=== PATIENT | female | born 1995 | race Caucasian/White ===

== ENCOUNTER 2019-10-08 21:42 | Emergency (ER) | payer OTHER ==
[~2019-10-08] VITALS: Ht 177.8 cm; Wt 84.6 kg
--- NOTE | 2019-10-08 21:48 | PHYS DOC ---
General Adult EDM: Chief Complaint: ABDOMINAL PAIN HPI: HPI: ".. I think I having pain from an Ovarian cyst.. it is down here on the Rt... I ve had cyst before.. " Patient is a 23 year old FEMALE who presents with above hx and complaints of abdomen pain. Pain is localized on right lower quadrant. Patient denies any facility history of bad food. No history of changes in stools. Patient denies any recent trauma. Patient has had a history of previous episodes ovarian cyst. Patient denies any history of STDs. Patient denies any pelvic discharge. Patient has had 8 lifetime sexual partners. 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 Patient in the past has been on control to control her ovarian cyst pain. Patient states earlier tonight her pain was rated 10 out of 10 however now is now rated 4 out of 10. Patient does smoke. Patient denies any recent travel outside the cancer area. Patient denies any s pecific ill contacts. Patient denies any history of metal suppression. Patient denies any history of colitis with her or family members. No history of kidney stones with her or family members. Review of Systems: Review of Systems: Constitutional: Denies fever or chills Eyes: Denies change in visual acuity HENT: Denies nasal congestion or sore throat Respiratory: Denies cough or shortness of breath Cardiovascular: Denies chest pain or edema GI: Complains of right lower quadrant abdominal pain, nausea,. Denies vomiting, bloody stools or diarrhea : Denies dysuria Musculoskeletal: Denies back pain or joint pain Integument: Denies rash Neurologic: Denies headache, focal weakness or sensory changes Endocrine: Denies polyuria or polydipsia Lymphatic: Denies swollen glands Psychiatric: Denies depression or anxiety Heart Score: Risk Factors: Risk Factors: DM, Current or recent (<one month) smoker, HTN, HLP, family history of CAD, obesity. Risk Scores: Score 0 - 3: 2.5% MACE over next 6 weeks - Discharge Home Score 4 - 6: 20.3% MACE over next 6 weeks - Admit for Clinical Observation Score 7 - 10: 72.7% MACE over next 6 weeks - Early Invasive Strategies Family History: Family History: Noncontributory Current Medications: Current Meds: See nursing for home meds Allergies: Allergies: Allergic to penicillin Physical Exam: PE: Constitutional: Well developed, well nourished, no acute distress, non-toxic appearance. [] HENT: Normocephalic, atraumatic, bilateral external ears normal, oropharynx moist, no oral exudates, nose normal. [] Eyes: PERRLA, EOMI, conjunctiva normal, no discharge. [] Glasses Neck: Normal range of motion, no tenderness, supple, no stridor. [] Cardiovascular:Heart rate regular rhythm, no murmur [] Lungs & Thorax: Bilateral breath sounds equal air. Few scattered wheezes auscultation [] Abdomen: Bowel sounds decreased, soft, right lower quadrant tenderness, no masses, no pulsatile masses. [] No CVA tenderness. Patient declined pelvic exam at this time. Mild rebound right lower quadrant Skin: Warm, dry, no erythema, no rash. [] Back: No tenderness, no CVA tenderness. [] Extremities: No tenderness, no cyanosis, no clubbing, ROM intact, no edema. [] Neurologic: Alert and oriented X 3, normal motor function, normal sensory function, no focal deficits noted. [] Psychologic: Affect anxious, judgement normal, mood normal. [] EKG: EKG: [] Radiology/Procedures: Radiology/Procedures: Patient refused radiographic exam []. Patient refused labs Course & Med Decision Making: Course & Med Decision Making Pertinent Labs and Imaging studies reviewed. (See chart for details) Pt. elected to not have a work up for her abdomen pain. Requesting discharge. Pt. exhibit UC[employer] capacity. Patient encouraged to remain on a clear fluid diet if she continued to have abdomen pain. Patient will follow up with primary care and/or OB. Patient agrees to return if elected to complete her abdomen pain work-up. Impression: 1. Rt. lower Abdomen pain 2. History of ovarian cyst 3. Tobacco use 4. Urine Drug Screen + Amphetamine and MJ [] Dragon Disclaimer: Dragon Disclaimer: This electronic medical record was generated, in whole or in part, using a voice recognition dictation system. Departure Departure: Disposition: HOME/RESIDENCE PRIOR TO ADM Condition: STABLE Referrals: MILIND GLORIA (PCP) MITESH BEASLEY MD Oct 08, 2019 21:48
[2019-10-08 22:03] VITALS: BP 117/66
[2019-10-08 22:08] LABS: BILIRUBIN,URINE NEG (NEG); CLARITY,URINE TURBID; COLOR,URINE YELLOW; GLUCOSE,URINE NEG (NEG)
[2019-10-08 22:09] LABS: NITRITE,URINE NEG (NEG); UROBILINOGEN,URINE 0.2 mg/dL (0.2 mg/dL)
[2019-10-08 22:13] LABS: BARBITURATES NEG (NEG); BENZODIAZEPINES NEG (NEG); CANNABINOIDS POS (NEG); COCAINE NEG (NEG); METHADONE NEG (NEG); OPIATES NEG (NEG); PHENCYCLIDINE NEG (NEG)
[2019-10-08 22:15] LABS: RBC,URINE TNTC /HPF (0-2)
[2019-10-08 22:16] LABS: WBC,URINE 0 /HPF (0-4)
[2019-10-08 22:17] LABS: SQUAMOUS EPITHELIAL CELL,UR OCC /LPF
[2019-10-08 22:18] LABS: BACTERIA,URINE MOD /HPF (0-FEW)
[2019-10-08 22:19] LABS: AMPHETAMINE/METHAMPHETAMINE POS (NEG)
[2019-10-08] MEDS ORDERED: IV RINGERS SOLUTION,LACTATED 1,000 ML IV SCH (23:14)
[2019-10-08] MEDS ORDERED: FAMOTIDINE 20 MG/2 ML VIAL IVP ONE (23:15)
[2019-10-08] MEDS ORDERED: ONDANSETRON PF 4 MG/2 ML VIAL. IVP ONE (23:15)
[2019-10-08] MEDS ORDERED: KETOROLAC 30 MG/ML VIAL. IVP ONE (23:15)
[2019-10-09] MEDS ORDERED: IOHEXOL 300 MG/ML 75 ML VIAL. IV ONE
[2019-10-09] MEDS ORDERED: CONTRAST GIVEN MC PRN (00:15)
== END 2019-10-08 23:22 | disposition home or self-care (01) ==
LOC: ER 21:42
DX: R10.31 Right lower quadrant pain (principal); F17.200 Nicotine dependence, unspecified, uncomplicated; N83.201 Unspecified ovarian cyst, right side; R11.0 Nausea; Z88.0 Allergy status to penicillin
CPT/HCPCS: 36415; 80307; 81001; 81025; 87086; 99283